=== PATIENT | female | born 1985 | race Caucasian/White ===

== ENCOUNTER 2017-07-17 17:55 | Emergency (ER) | payer OTHER ==
[2017-07-17] MEDS ORDERED: KETOROLAC TROMETHAMINE 30 MG/ML VIAL IV ONE (19:58)
[2017-07-17] MEDS ORDERED: NORMAL SALINE 1,000 ML IV ONE (19:58)
[2017-07-17] MEDS ORDERED: ONDANSETRON HCL/PF 2 MG/ML VIAL IV ONE ×2 (19:58→21:41)
[2017-07-17 20:05] LABS: Urine Appearance Clear; Urine Bilirubin Negative (NEGATIVE); Urine Blood Negative /ul (NEGATIVE); Urine Color Yellow; Urine Ketone Negative (NEGATIVE)
[2017-07-17 20:06] LABS: Urine Bacteria None Seen; Urine Nitrite Negative (NEGATIVE); Urine Protein Negative (NEGATIVE); Urine RBC None Seen /hpf (0-5); Urine Urobilinogen Normal (NORMAL); Urine WBC 0-5 /hpf (0-5)
[2017-07-17] MEDS ORDERED: ONDANSETRON HCL/PF 2 MG/ML VIAL ONE ×2 (20:07→21:52)
[2017-07-17] MEDS ORDERED: KETOROLAC TROMETHAMINE 30 MG/ML VIAL ONE (20:07)
[2017-07-17 20:12] LABS: Cocaine Ur Negative (NEGATIVE); Urine Barbiturate Negative (NEGATIVE); Urine Benzodiazepines Positive (NEGATIVE); Urine Opiates Negative (NEGATIVE); Urine PCP Negative (NEGATIVE); Urine THC Positive (NEGATIVE)
--- NOTE | 2017-07-17 20:17 | ERNOTE ---
Abdominal HPI - Narrative Date of Service: 07/17/17 - General Chief Complaint: Abdominal Pain Time Seen by Provider: 07/17/17 19:49 Source: patient Exam Limitations: no limitations - Immun/Allergies/Home Medications Immunizatons: IMMUNIZATION HX Immunizations Up to Date Yes History of Influenza Vaccine Yes Hx Pneumococcal Vaccination No Allergies/Adverse Reactions: Allergies aspirin Allergy (Verified 02/29/16 12:13) orphenadrine citrate [From Norflex] Allergy (Verified 02/29/16 12:13) promethazine HCl [From Phenergan] Allergy (Verified 02/29/16 12:13) ibuprofen Adverse Reaction (Verified 02/29/16 12:13) Nausea Home Medications: HOME MEDICATIONS Tramadol HCl [Rybix Odt] 50 mg PO .Q4-6H PRN #30 tab.rapdis 02/29/16 [Last Taken Unknown] Bupropion HCl [Wellbutrin Xl] 300 mg PO DAILY 07/17/17 [Last Taken Unknown] Dicyclomine HCl [Bentyl] 10 mg PO TID #30 capsule 07/17/17 [Last Taken Unknown] Duloxetine HCl [Cymbalta] 30 mg PO HS 07/17/17 [Last Taken Unknown] Duloxetine HCl [Cymbalta] 60 mg PO DAILY 07/17/17 [Last Taken Unknown] Ondansetron [Zofran Odt] 4 mg PO Q6H PRN #20 tab 07/17/17 [Last Taken Unknown] Pregabalin [Lyrica] 100 mg PO BID 07/17/17 [Last Taken Unknown] - History of Present Illness Narrative: Pt. comes in with c/o B back pain that radiates to her lateral stomach and to her suprapubic that is accompanied by NVD for a week. Pt. denies any SOB, fever , hematuria, dysuria, cough, CP, alleviating factors, aggravating factors, but has been seen in [facility] x 2 for this and states that they gave her tramadol and a CT scan which indicated renal stones and set her up for ureterogram and treatment by urology at [facility] on Tuesday. Review of Systems - Review of Systems Constitutional: Present: no symptoms reported. Absent: fever, chills, weakness , fatigue, malaise, weight loss, decreased activity level EYE: Present: no symptoms reported ENT: Present: no symptoms reported Respiratory: Present: no symptoms reported. Absent: shortness of breath, cough , wheezing Cardiology: Present: no symptoms reported. Absent: chest pain, palpitations, edema Gastrointestinal/Abdominal: Present: nausea, vomiting, abdominal pain - lateral sides and suprapubic Genitourinary: Present: pain - B flank. Absent: dysuria, hematuria Musculoskeletal: Present: no symptoms reported Neurological: Present: no symptoms reported. Absent: headache, dizziness/light- headedness, numbness, tingling All Other Systems: All systems neg except as marked - Patient's Past Medical History Patient History - Medical: Chronic Pain Patient History - Cardiac/Respiratory: Bronchitis Patient History - Cancer: No Hx of Cancer Patient History - Surgical Procedures: Appendectomy, Back Surgery, Cholecystectomy, , Other Patient History - Other: None - Family History Mother Family History - Medical: No pertinent hx - Social History Living Situations: alone Abuse History: No History of abuse Psych History: Hx of Anxiety, Hx of Depression Smoking Status: Current every day smoker Alcohol Use: none Drug Use: none - Immunizations Immunizations Up to Date: Yes Hx Pneumococcal Vaccination: No History of Influenza Vaccine: Yes Physical Exam - Physical Exam General Appearance: Present: wd/wn, alert, no apparent distress Head Exam: Present: normal inspection, no evidence of injury Eye Exam: Normal inspection: bilateral, PERRL: bilateral, EOMI: bilateral Ears, Nose, Throat: Present: normal ENT inspection, normal pharynx Neck: Present: normal inspection, nontender. Absent: lymphadenopathy (R), lymphadenopathy (L) Respiratory: Present: no respiratory distress, normal breath sounds, no accessory muscle use, chest nontender, lungs clear Cardiovascular/Chest: Present: regular rate, rhythm, no murmur, normal peripheral pulses Gastrointestinal/Abdominal: Present: normal bowel sounds, tenderness - Suprapubic L pelvic Back Exam: Present: normal range of motion, no vertebral tenderness, CVA tenderness (L). Absent: muscle spasm Extremity Exam: Present: normal inspection, non-tender, normal range of motion, no edema Neurological Exam: Present: alert, oriented, normal mood/affect, no motor/ sensory deficits Skin Exam: Present: normal color, warm/dry. Absent: pallor, skin rash ED Progress - Date and Time Seen: Date and Time: 07/17/17 21:41 Discussed ith pt. and Dr Fontaine and we reviewed records from [facility] and as pt. CTs are negative it is unlikely that pt. has any acute abdominal process that needs diagnosis in the ER. However, we educated pt. on follow up with her PCP and the urologists for symptoms. Will give pt. another dosage of zofran and prescribe zofran and bentyl for pt. symptoms. - Results and Orders Patient's Lab Results:: I have reviewed the patient's lab results. - Vital Signs Patient's Vital Signs:: I have reviewed the patient's vital signs. Vital Signs: Vital Signs 07/17/17 19:20 Temperature 37.0 C Pulse Rate 101 H Respiratory 16 Rate Blood Pressure 104/50 O2 Sat by Pulse 97 Oximetry - X-Ray X-Ray #1 X-Ray: abdomen Interpretation: Reviewed by me X-ray Comments: moderate amount of stool and pheboliths. - Progress/Reassessment Chief Complaint: Abdominal Pain Departure - Departure Clinical Impression: Renal colic on left side, LLQ pain Disposition: Home self-care Condition: Good Instructions: Renal Colic, [id number], Nausea, Adult Additional Instructions: Please follow up with primary provider in 2-3 days please follow up with Dr Hernandez on Tuesday as planned. Prescriptions: Dicyclomine HCl [Bentyl] 10 mg PO TID #30 capsule Ondansetron [Zofran Odt] 4 mg PO Q6H PRN #20 tab PRN Reason: Nausea
[2017-07-17 20:19] LABS: Hematocrit 40.1 % (37.0-47.0); Hemoglobin 13.6 gm/dL (12.5-16.0); Mean Cell Volume 90.7 fl (78-100); Mean Corpuscular Hemoglobin 30.8 pg (27-31); Mean Corpuscular Hgb Conc 33.9 g/dl (32-36); Mean Platelet Volume 9.4 fl (6.0-9.5); Platelet Count 351 K/mm3 (150-450); Red Blood Count 4.42 M/mm3 (4.2-5.4); Red Cell Distribution Width 11.9 % (11.5-14.0); White Blood Count 15.3 K/mm3 (4.0-10.5)
[2017-07-17 20:37] LABS: Albumin * 3.7 gm/dl (3.4-5.0); Anion Gap 15.9 mmol/L (6.8-13.8); BUN/Creatinine Ratio 8.3 (9.0-21.6); Bilirubin, Total 0.4 mg/dL (0.0-1.1); Ca. Corrected For Albumin 8.9 mg/dL (8.4-10.2); Carbon Dioxide 25.8 mmol/L (24-32.6); Potassium 3.7 mmol/L (3.4-4.6); Total Protein 7.3 gm/dL (6.2-8.2)
[2017-07-17] MEDS ORDERED: METOCLOPRAMIDE HCL 5 MG/ML VIAL IV ONE (20:56)
[2017-07-17] MEDS ORDERED: METOCLOPRAMIDE HCL 5 MG/ML VIAL ONE (21:00)
[2017-07-17] MEDS ORDERED: DICYCLOMINE HCL 10 MG/ML AMPUL IM ONE ×2 (21:46→21:52)
[2017-07-17 22:08] VITALS: BP 99/49
== END 2017-07-17 22:05 | disposition home or self-care (01) ==
LOC: ER 17:55
DX: N23 Unspecified renal colic (principal); F17.200 Nicotine dependence, unspecified, uncomplicated; G89.29 Other chronic pain; F41.9 Anxiety disorder, unspecified; F32.9 Major depressive disorder, single episode, unspecified; Z79.899 Other long term (current) drug therapy
CPT/HCPCS: 36415; 74020; 80053; 80307; 81001; 84703; 85025; 96372; 96374; 96375; 99284; J2405